=== PATIENT | male | born 1975 | race African-American/Black ===

== ENCOUNTER 2023-08-02 20:36 | Emergency (ER) | payer MEDICARE, SELFPAY ==
--- NOTE | ~2023-08-02 | XR_ITS ---
EXAMINATION: XR finger 4th RT min 2V DATE: 08/02/2023 21:45 INDICATION: Right hand fourth digit infection and swelling. TECHNIQUE: 3 views of right hand fourth digit were obtained. COMPARISON: None. FINDINGS: Bone alignment is normal. No fracture. 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 There is soft tissue swelling of the fourth digit. IMPRESSION: 1. Soft tissue swelling of the fourth digit. No radiopaque foreign body. No osteomyelitis. Reviewed, dictated and finalized at location E[facility] [employer] [employer] IMPRESSION: 1. Soft tissue swelling of the fourth digit. No radiopaque foreign body. No ost eomyelitis.
[2023-08-02 20:42] VITALS: BP 146/80; PULSE 63; RESP 17; TEMP 36.3; O2SAT 100
--- NOTE | 2023-08-02 21:41 | ED.UPPEXIN ---
HPI - Extremity Injury (Upper) General Chief Complaint: Extremity Injury, Upper Stated Complaint: right finger injury Time Seen by Provider: 08/02/23 21:08 Source: patient Mode of arrival: ambulatory Limitations: no limitations History of Present Illness HPI narrative: Patient is a 48-year-old male, with PMH of lymphedema of BLE, who presents the ED with report of pain and swelling to right 4th digit. Patient reports he sustained a paper cut from a cardboard box to the flexor surface of his right 4th digit a few days ago. He began noticing increased pain, swelling, redness to the digit over the last couple of days. Difficulty bending finger fully. Denies fevers. Denies drainage from the abrasion. Denies numbness/tingling. Related Data Allergies Allergy/AdvReac Type Severity Reaction Status Date / Time No Known Allergies Allergy Verified 08/02/23 21:06 Review of Systems Review of Systems: CONSTITUTIONAL: Denies fever, chills, or sweats. SKIN: See HPI MUSCULOSKELETAL: See HPI NEUROLOGIC: Denies numbness or weakness. All systems reviewed & are unremarkable except as noted in HPI and below Exam Narrative: GENERAL: Well appearing, obese with BMI of 35.3, non-toxic, in no acute distress. HEAD: Normocephalic, atraumatic. RESPIRATORY: Airway patent, respirations nonlabored. Clear to auscultation bilaterally, no rales, rhonchi, wheezing. CARDIOVASCULAR: Regular rate and rhythm. Radial pulses 2+ MUSCULOSKELETAL: Moves all extremities. No gross deformities. Limited ROM of R 4th digit due to pain. Diffuse erythema and swelling of L 4th digit with small scabbed linear vertical laceration to flexor surface of digit between the PIP and PIP joints. Focal tenderness to this area. No significant tenderness distal to DIP or proximal to PIP along flexor surface. No palpable fluctuance. No drainage. No streaking erythema or swelling into dorsal or palmar hand. Sensation intact. Brisk capillary refill. Chronic lymphedema to BLE. SKIN: Warm, dry, normal color. NEURO: A&O X3. Speech clear. Cranial nerves II-XII grossly intact. No ataxic movements. PSYCHIATRIC: Appropriate mood and affect. Normal interaction. Course Vital Signs Vital signs: Vital Signs Temperature 97.4 F L 08/02/23 20:42 Pulse Rate 63 08/02/23 20:42 Respiratory Rate 17 08/02/23 20:42 Blood Pressure 146/80 H 08/02/23 20:42 Pulse Oximetry 100 08/02/23 20:42 Oxygen Delivery Room Air 08/02/23 20:42 Temperature 97.4 F L 08/02/23 20:42 Pulse Rate 63 08/02/23 20:42 Respiratory Rate 17 08/02/23 20:42 Blood Pressure 146/80 H 08/02/23 20:42 Pulse Oximetry 100 08/02/23 20:42 Oxygen Delivery Room Air 08/02/23 20:42 MDM - Extremity Injury (Upper) MDM Narrative Medical decision making narrative: Patient presented to ED with infection to right 4th digit. Vitals stable upon arrival. Afebrile. Exam concerning for possible flexor tenosynovitis, though patient with only localized tenderness surrounding the scabbed region between DIP/PIP joints. No other significant tenderness along the flexor surface. No appreciable fluctuance/abscess formation. X-ray showing soft tissue swelling, no osseous involvement or foreign body. Cbc without leukocytosis, mild anemia. Remainder basic laboratory studies fairly unremarkable. CRP 1.6. ESR 50. Discussed case with Dr. Ray, plastic/hand surgery, recommended dose of IV abx, close f/u in office. Discussed these recommendations with patient. Discussed IP vs OP management. Patient feels comfortable going home and following up as outpatient. Discussed warm compressions, taking all abx as prescribed, contacting Dr. Ray's office tomorrow. Discussed extremely strict return precautions should symptoms worsen, signs and symptoms to look out for. Patient voiced understanding. Given dose of vanc and ceftriaxone in the ED per UpToDate guidelines for empiric Tx of possible FTS. Will discharge on
[2023-08-02 21:58] LABS: Basophils Percent Auto 0.2 % (0.2-1.2); Eosinophils Absolute Auto 0.1 K/mm3 (0-0.3); Eosinophils Percent Auto 1.3 % (0-4.4); Hematocrit 35.6 % (42.0-52.0); Hemoglobin 10.8 g/dL (14.0-18.0); Immature Granulocyte Absolute 0.01 K/mm3 (0.00-0.031); Immature Granulocyte Percent A 0.2 % (0-0.5); Lymphocytes Absolute Auto 1.02 K/mm3 (0.9-3.2); Lymphocytes Percent Auto 19.5 % (18.3-44.2); Mean Corpuscular HGB Conc 30.3 g/dl (32-36); Mean Corpuscular Hemoglobin 27.1 pg (26-34); Mean Corpuscular Volume 89.2 fl (80-100); Mean Platelet Volume 9.1 fl (7.4-10.4); Monocytes Absolute Auto 0.3 K/mm3 (0.1-0.6); Monocytes Percent Auto 5.6 % (2.6-8.5); Neutrophils Absolute Auto 3.8 K/mm3 (1.3-6.7); Neutrophils Percent Auto 73.2 % (45.5-73.1); Platelet Count Result 239 k/mm3 (150-375); Red Blood Count 3.99 M/mm3 (4.6-6.20); Red Cell Distribution Width 16.5 % (11.5-14.5); White Blood Count 5.2 K/mm3 (4.5-10.0)
[2023-08-02 22:10] LABS: Alanine Aminotransferase 11 U/L (6-50); Albumin Level 3.7 g/dL (3.5-5.1); Alkaline Phosphatase 89 U/L (38-126); Anion Gap 6 mmol/L (8-16); Aspartate Amino Transferase 23 U/L (17-59); Bilirubin,Total 0.4 mg/dL (0.2-1.3); Blood Urea Nitrogen 9 mg/dL (9-20); CRP 1.6 mg/dL (<1.0); Calcium 8.5 mg/dL (8.4-10.2); Carbon Dioxide 25 mmol/L (22-30); Chloride 109 mmol/L (98-107); Estimated CRCL calculation 153 ml/min; Estimated Glomerular Filt Rate > 60; Glucose 107 mg/dL (65-110); Potassium 3.6 mmol/L (3.4-5.0); Sodium 140 mmol/L (137-145)
[2023-08-02 22:21] LABS: Erythrocyte Sedimentation Rate 50 mm/hr (0-20)
[2023-08-02] MEDS: HYDROcodone/acetaminophen (*CRX) 5-325 MG TABLET 1 TAB PO (23:12)
[2023-08-02] MEDS: cefTRIAXone 2 GM/NS 100 ML 2 GM/100 ML BAG IVPB (23:13)
[2023-08-02] MEDS: VANCOMYCIN 1,500 MG/NS 500 ML BAG 250 MG IVPB (23:29)
[2023-08-02] MEDS: TETANUS,DIPHTHERIA,AC PERTUSSIS ADULT (0.5 ML) BOOSTRIX IM (23:42)
[2023-08-03] MEDS: KETOROLAC 30 MG/ML VIAL (*BKC) IV PUSH (01:16)
[2023-08-03 02:54] VITALS: BP 122/83; PULSE 53; RESP 12; O2SAT 100
== END 2023-08-03 03:00 | disposition home or self-care (01) ==
PROVIDERS: Emergency Provider Physician Assistant
DX: L03.011 Cellulitis of right finger (principal); Z23 Encounter for immunization
CPT/HCPCS: 36415; 73140; 80053; 85025; 85652; 86140; 90471; 90715; 96365; 96367; 96375; 99284; A9270; J0696; J1885; J3370

== ENCOUNTER 2023-08-04 03:10 | Emergency (ER) | payer MEDICARE, SELFPAY ==
[2023-08-04 03:11] VITALS: BP 147/78; PULSE 52; RESP 19; TEMP 36.7; O2SAT 94
--- NOTE | 2023-08-04 05:00 | PC.NURSE ---
this rn attempted to check on pt. pt was not found in room/ bathroom/ hallway/ or in the lobby. edp made aware along with ed charge hand kelly.
== END 2023-08-04 05:00 | disposition left against medical advice (07) ==
DX: M79.644 Pain in right finger(s) (principal)
CPT/HCPCS: 99199